=== PATIENT | female | born 1960 | race Caucasian/White ===

== ENCOUNTER 2019-07-13 10:58 | Inpatient (IN) | payer BC ==
[~2019-07-13] VITALS: Ht 157.5 cm; Wt 92.8 kg
[2019-07-18 09:47] LABS: HEMATOCRIT 39.3 % (37.0-47.0); HEMOGLOBIN 13.3 g/dl (12.5-16.0); MEAN CELL VOLUME 90 fl (80.0-100.0); MEAN CORPUSCULAR HEMOGLOBIN 31 pg (27.0-31.0); MEAN CORPUSCULAR HGB CONC 34 g/dl (33.0-37.0); MEAN PLATELET VOLUME 10.1 fl (7.4-10.4); PLATELET COUNT 267 K/mm3 (130-400); RED BLOOD COUNT 4.35 M/mm3 (4.10-5.30); REDCELL DISTRIBUTION WIDTH-CV 12.1 % (11.5-14.5)
[2019-07-18 09:58] LABS: ALBUMIN 4.4 gm/dL (3.5-5.0); BILIRUBIN,TOTAL 0.3 mg/dL (0.0-1.0); CALCIUM 9.7 mg/dL (8.4-10.2); CREATININE, serum 0.8 (0.52-1.25); POTASSIUM 4.5 mmol/L (3.4-5.0); TOTAL PROTEIN 7.6 gm/dL (6.4-8.2)
[2019-07-19] VITALS (12 sets, daily range): BP systolic 121–143; BP diastolic 67–86; PULSE 68–88; TEMP 97.9–98.6
[2019-07-19] MEDS ORDERED: PROMETRIUM100 MG PO (06:38)
[2019-07-19] MEDS ORDERED: [UNRECOGNIZED DRUG - OTHER] PO (06:39)
[2019-07-19] MEDS ORDERED: NATURAL MAGNES200 MG PO (06:40)
[2019-07-19] MEDS ORDERED: ADRENAL SUPPORT PO (06:41)
[2019-07-19] MEDS ORDERED: VITAMIND3 5000 PO (06:42)
[2019-07-19] MEDS ORDERED: MULTI VITAMINS1 TAB PO (06:43)
[2019-07-19] MEDS ORDERED: [UNRECOGNIZED DRUG - OTHER] PO (06:44)
[2019-07-19] MEDS ORDERED: ARMOUR THYROID120 MG PO (06:44)
[2019-07-19 12:20] LABS: HEMATOCRIT 40.2 % (37.0-47.0); HEMOGLOBIN 13.6 g/dl (12.5-16.0); MEAN CELL VOLUME 92 fl (80.0-100.0); MEAN CORPUSCULAR HEMOGLOBIN 31 pg (27.0-31.0); MEAN CORPUSCULAR HGB CONC 34 g/dl (33.0-37.0); MEAN PLATELET VOLUME 10.1 fl (7.4-10.4); PLATELET COUNT 246 K/mm3 (130-400); RED BLOOD COUNT 4.39 M/mm3 (4.10-5.30); REDCELL DISTRIBUTION WIDTH-CV 12.4 % (11.5-14.5)
[2019-07-19 12:27] LABS: CALCIUM 9.1 mg/dL (8.4-10.2); CREATININE, serum 0.81 (0.52-1.25); POTASSIUM 3.6 mmol/L (3.4-5.0)
[2019-07-19 13:09] LABS: BAND 19 % (0-10); LYMPHOCYTE 9 % (20.0-51.0); NEUTROPHILS 72 % (42.0-75.2); PLATELET ESTIMATE NORMAL (NORMAL)
[2019-07-20 03:43] VITALS: BP 120/77; PULSE 72; TEMP 97.8
[2019-07-20 06:27] LABS: BASO % 0.2 % (0.0-2.0); EOS % 0.3 % (0-4.0); GRAN # 8.1 (1.4-6.5); GRAN % 71.3 % (42.2-75.2); HEMATOCRIT 35.4 % (37.0-47.0); HEMOGLOBIN 11.9 g/dl (12.5-16.0); LYMPH # 2.4 (1.2-3.4); LYMPH % 21.2 % (20.0-51.0); MEAN CELL VOLUME 91 fl (80.0-100.0); MEAN CORPUSCULAR HEMOGLOBIN 31 pg (27.0-31.0); MEAN CORPUSCULAR HGB CONC 34 g/dl (33.0-37.0); MEAN PLATELET VOLUME 10.3 fl (7.4-10.4); MONO # 0.8 (0.1-0.6); MONO % 6.7 % (1.7-9.3); PLATELET COUNT 239 K/mm3 (130-400); REDCELL DISTRIBUTION WIDTH-CV 12.5 % (11.5-14.5)
[2019-07-20 06:32] LABS: CREATININE, serum 0.89 (0.52-1.25); POTASSIUM 4.1 mmol/L (3.4-5.0)
[2019-07-20 07:11] VITALS: BP 129/74; PULSE 73; TEMP 98.4
[2019-07-20 13:07] VITALS: BP 130/70; PULSE 75; TEMP 98.6
[2019-07-20 17:43] VITALS: BP 127/73; PULSE 80; TEMP 97.8
== END 2019-07-20 20:00 | disposition home or self-care (01) | DRG 658 ==
LOC: SURG 07-19 05:34 → INPTSU 07-19 05:34 → SURG 07-19 07:30
PROVIDERS: ADMIT Urology
PROC: 8E0W4CZ Robotic Assisted Procedure of Trunk Region, Percutaneous Endoscopic Approach (ICD-10-PCS; 2019-07-19)
PROC: 0TB14ZZ Excision of Left Kidney, Percutaneous Endoscopic Approach (ICD-10-PCS; principal; 2019-07-19 07:30)
DX: C64.2 Malignant neoplasm of left kidney, except renal pelvis (principal)
CPT/HCPCS: A4314; A9284; J1100; J2250; J2704; J3010; J7120

== ENCOUNTER → 2019-07-15 | Outpatient (CLI) | payer BC ==
[~2019-07-15] MED LIST: ADRENAL SUPPORT PO; ARMOUR THYROID120 MG PO; MULTI VITAMINS1 TAB PO; NATURAL MAGNES200 MG PO; PROMETRIUM100 MG PO; VITAMIND3 5000 PO; [UNRECOGNIZED DRUG - OTHER] PO; [UNRECOGNIZED DRUG - OTHER] PO
== END ==
LOC: COL.RAD 14:12
DX: N28.89 Other specified disorders of kidney and ureter (principal); I70.8 Atherosclerosis of other arteries; M47.816 Spondylosis without myelopathy or radiculopathy, lumbar region; M43.16 Spondylolisthesis, lumbar region
CPT/HCPCS: Q9967

== ENCOUNTER → 2020-10-26 | Outpatient (CLI) | payer BC ==
[~2020-10-26] MED LIST changes: +MOTRIN 400400 MG/TAB PO; +PROBIOTIC 2 BI1 EACH PO
== END ==
LOC: MC.RAD
DX: Z12.31 Encounter for screening mammogram for malignant neoplasm of breast (principal)

== ENCOUNTER → 2021-05-31 | Day surgery (SDC) | payer BC ==
[~2021-05-31] VITALS: Ht 157.5 cm; Wt 94.4 kg
[2021-05-31 06:37] VITALS: BP 134/83; PULSE 79; TEMP 97.7
[2021-05-31 08:00] VITALS: BP 127/81; PULSE 67; TEMP 96.9
[2021-05-31 08:15] VITALS: BP 119/84; PULSE 63
[2021-05-31 08:30] VITALS: BP 134/83; PULSE 60
--- NOTE | 2021-05-31 08:30 | NUR ---
0800 Pt returns from endo procedure via cart to [place] [facility]. Pt ambulates from cart to recliner with RN assist. Monitors on and alarms set. Call light within reach. Report received from NADIYA Bruce. Pt alert and oriented. Pt requests tea and pudding. Pt denies any pain or nausea. 0815 - Pt taking food and drink well. No complications noted. 0830 - Discharge instructions given to pt. All questions answered to patient satisfaction. Handed to pt are a thank you card and discharge information. 0900 - in to see pt 0910 - patient transfered to personal vehicle to be driven home by .
== END ==
LOC: SDCO 06:04
DX: Z12.11 Encounter for screening for malignant neoplasm of colon (principal); Z86.010 Personal history of colon polyps; D12.2 Benign neoplasm of ascending colon; I10 Essential (primary) hypertension; E03.9 Hypothyroidism, unspecified; Z79.890 Hormone replacement therapy; Z85.528 Personal history of other malignant neoplasm of kidney
CPT/HCPCS: J2704; J7120

== ENCOUNTER 2022-09-12 06:02 | Day surgery (SDC) | payer BC ==
[~2022-09-12] VITALS: Ht 157.5 cm; Wt 94.4 kg
[2022-09-12] MEDS ORDERED: ALDACTONE 25MG25 M1 PO (06:30)
[2022-09-12] MEDS ORDERED: PROGEST (06:32)
[2022-09-12] MEDS ORDERED: CEPHALEXIN500 M1 PO (06:32)
[2022-09-12] MEDS ORDERED: ARMOUR THYROID15 MG PO (06:33)
[2022-09-12] MEDS ORDERED: ARMOUR THYROID60 MG PO (06:34)
[2022-09-12] MEDS ORDERED: NORVASC 10MG10 MG PO (06:36)
[2022-09-12] MEDS ORDERED: EPA FISH OIL1 SGL PO (06:37)
[2022-09-12] MEDS ORDERED: VITAMIND3 5000 PO (06:38)
[2022-09-12] MEDS ORDERED: ARMOUR THYROID90 MG PO (06:39)
[2022-09-12] MEDS ORDERED: MULTI VITAMINS1 TAB PO (06:40)
[2022-09-12 06:57] VITALS: BP 130/91; PULSE 82; TEMP 97.1
[2022-09-12 07:45] VITALS: BP 105/73; PULSE 72; TEMP 97.1
[2022-09-12 08:00] VITALS: BP 104/75; PULSE 68
[2022-09-12 08:15] VITALS: BP 118/86; PULSE 68
[2022-09-12 08:30] VITALS: BP 122/78; PULSE 68
--- NOTE | 2022-09-12 08:40 | NUR ---
0745 RETURNS TO ROOM 1 PER CART. AWAKE, ALERT. RESP CLEAR, SPONTANEOUS. AMBULATES TO RECLINER WITH STANDBY ASSIST. VITAL SIGNS OBTAINED. DENIES NAUSEA OR ABD PAIN. CALL LIGHT AT SIDE. SIGNIFICANT OTHER IN ROOM 0751 DISCHARGE INSTRUCTIONS REVIEWED. PATIENT AND SIGNIFICANT OTHER VERBALIZE UNDERSTANDING. COPY PROVIDED IN DISCHARGE FOLDER. 0805 TOLERATES PO WATER APPLESAUCE AND MUFFIN WITHOUT NAUSEA. [address] PATTERSON HERE TO VISIT WITH PATIENT
== END 2022-09-12 08:44 | disposition home or self-care (01) ==
LOC: SDCO 06:02
DX: Z12.11 Encounter for screening for malignant neoplasm of colon (principal); D12.2 Benign neoplasm of ascending colon; T18.4XXA Foreign body in colon, initial encounter; X58.XXXA Exposure to other specified factors, initial encounter; I10 Essential (primary) hypertension
CPT/HCPCS: J2704; J7120